=== PATIENT | female | born 1965 | race Caucasian/White ===

== ENCOUNTER 2019-11-17 13:15 | Outpatient (CLI) | payer MEDICARE, SELFPAY ==
[2019-11-17 13:54] LABS: Basophils % 0.6 %; Eosinophils % 0.4 %; Hematocrit 43.2 % (37.0-47.0); Hemoglobin 14.1 g/dL (11.5-15.3); Lymphocytes # 1.3 10^3/uL (0.8-4.8); Lymphocytes % 26.2 %; Mean Corpuscular HGB Conc 32.6 g/dL (30.0-36.0); Mean Corpuscular Hemoglobin 29.7 pg (28.0-34.0); Mean Corpuscular Volume 90.9 fL (81-99); Mean Platelet Volume 9.5 fL (7.4-10.4); Monocytes # 0.4 10^3/uL (0.2-0.9); Monocytes % 8.7 %; Neutrophils # 3.2 10^3/uL (1.8-7.7); Neutrophils % 63.9 %; Nucleated Red Blood Cells % 0 %; Platelet Count 239 10^3/cmm (130-400); Red Blood Count 4.75 10^6/uL (4.1-5.3); Red Cell Distribution Width 12.7 % (12.1-15.1)
[2019-11-17 14:09] LABS: Creatinine Urine, Random 156 mg/dL (28-217); Microalbumin Random Urine 9 ug/dL (0-20)
[2019-11-17 14:17] LABS: Magnesium 2.2 mg/dL (1.7-2.3)
[2019-11-17 14:18] LABS: Albumin Level 4.4 g/dL (3.5-5.2); Anion Gap 14.5 (5-19); Blood Urea Nitrogen 26 mg/dL (6-20); Calcium 9.8 mg/dL (8.5-10.5); Carbon Dioxide 24 mmol/L (22-29); Chloride 100 mmol/L (98-107); Glucose 98 mg/dL (65-115); Phosphorus 3.2 mg/dL (2.5-4.5); Potassium 3.5 mmol/L (3.5-5.1); Sodium 135 mmol/L (136-145)
[2019-11-17 14:19] LABS: Microalbum Creatinine Ratio Ur 58 mg/dL (0-20)
[2019-11-17 14:37] LABS: 25 Hydroxy Vitamin D 36 ng/mL (30-100)
[2019-11-17 14:51] LABS: Calcium 10.2 mg/dL (8.5-10.5); Parathyroid Hormone 129.3 pg/mL (15-65)
== END 2019-11-17 13:16 | disposition home or self-care (01) ==
LOC: LAB 13:21
PROVIDERS: Family Provider Internal Medicine; PCP Internal Medicine; Visit Provider Nurse Practitioner Family
DX: N18.4 Chronic kidney disease, stage 4 (severe) (principal)
CPT/HCPCS: 36415; 80069; 82044; 82306; 82310; 83735; 83970; 85025

== ENCOUNTER 2020-02-06 11:27 | Outpatient (CLI) | payer MEDICARE, SELFPAY ==
--- NOTE | 2020-02-06 11:34 | XR_ITS ---
WS: [id number] CHEST 2 VIEWS HISTORY: Cough COMPARISON: None available. Lungs: Clear with no abnormality. No pleural effusion or pneumothorax. Cardiac size: Normal. Mediastinum/Aorta: Normal mediastinum. Bones: Normal. XR/XR chest 2V* [id number] IMPRESSION: Normal chest.
[2020-02-06 11:52] LABS: Basophils % 0.9 %; Eosinophils # 0.2 10^3/uL (0.0-0.8); Eosinophils % 4.3 %; Hematocrit 42.7 % (37.0-47.0); Hemoglobin 13.8 g/dL (11.5-15.3); Lymphocytes # 1.2 10^3/uL (0.8-4.8); Lymphocytes % 26.1 %; Mean Corpuscular HGB Conc 32.3 g/dL (30.0-36.0); Mean Corpuscular Hemoglobin 31.1 pg (28.0-34.0); Mean Corpuscular Volume 96.2 fL (81-99); Mean Platelet Volume 9.2 fL (7.4-10.4); Monocytes # 0.4 10^3/uL (0.2-0.9); Monocytes % 9.5 %; Neutrophils # 2.6 10^3/uL (1.8-7.7); Nucleated Red Blood Cells % 0 %; Platelet Count 240 10^3/cmm (130-400); Red Blood Count 4.44 10^6/uL (4.1-5.3); White Blood Count 4.4 10^3/uL (4.0-10.0)
[2020-02-06 12:08] LABS: Alanine Aminotransferase 166 U/L (0-33); Albumin Level 4.8 g/dL (3.5-5.2); Alkaline Phosphatase 124 IU/L (35-105); Anion Gap 16.3 (5-19); Aspartate Amino Transferase 97 U/L (0-32); Blood Urea Nitrogen 13 mg/dL (6-20); Calcium 9.8 mg/dL (8.5-10.5); Carbon Dioxide 27 mmol/L (22-29); Chloride 104 mmol/L (98-107); Globulin 2.8 g/dL (1.3-4.6); Glomerular Filtration Rate 36.5 mL/min (90-130); Glucose 109 mg/dL (65-115); Osmolality Calculated 293 mOsm/kg (285-295); Potassium 4.3 mmol/L (3.5-5.1); Sodium 143 mmol/L (136-145); Total Bilirubin 0.5 mg/dL (0.15-1.2); Total Protein 7.6 g/dL (6.6-8.7)
== END 2020-02-06 11:28 | disposition home or self-care (01) ==
LOC: RAD 11:32
PROVIDERS: Nurse Practitioner Family; Family Provider Internal Medicine; PCP Internal Medicine; Visit Provider Internal Medicine
DX: R05 Cough (principal); R53.83 Other fatigue
CPT/HCPCS: 36415; 71046; 80053; 85025

== ENCOUNTER 2020-02-27 10:50 | Outpatient (CLI) | payer MEDICARE, SELFPAY ==
[2020-02-27 12:28] LABS: Alanine Aminotransferase 27 U/L (0-33); Albumin Level 4.6 g/dL (3.5-5.2); Alkaline Phosphatase 98 IU/L (35-105); Anion Gap 12.8 (5-19); Aspartate Amino Transferase 21 U/L (0-32); Blood Urea Nitrogen 18 mg/dL (6-20); Calcium 9.2 mg/dL (8.5-10.5); Carbon Dioxide 29 mmol/L (22-29); Chloride 103 mmol/L (98-107); Globulin 2.3 g/dL (1.3-4.6); Glomerular Filtration Rate 31.6 mL/min (90-130); Glucose 98 mg/dL (65-115); Osmolality Calculated 288 mOsm/kg (285-295); Potassium 3.8 mmol/L (3.5-5.1); Sodium 141 mmol/L (136-145); Total Bilirubin 0.5 mg/dL (0.15-1.2); Total Protein 6.9 g/dL (6.6-8.7)
[2020-02-27 13:35] LABS: Estmated Average Glucose 114; Hemoglobin A1C 5.6 % (4.0-6.0)
== END 2020-02-27 10:51 | disposition home or self-care (01) ==
PROVIDERS: PCP Internal Medicine; Visit Provider Internal Medicine Nephrology
DX: N18.3 Chronic kidney disease, stage 3 (moderate) (principal); R89.9 Unspecified abnormal finding in specimens from other organs, systems and tissues
CPT/HCPCS: 36415; 80053; 82044; 83036; 84100; 85025

== ENCOUNTER 2020-02-27 10:58 | Outpatient (CLI) | payer MEDICARE, SELFPAY ==
[2020-02-27 12:10] LABS: Basophils % 0.6 %; Eosinophils # 0.2 10^3/uL (0.0-0.8); Eosinophils % 3.1 %; Hematocrit 44.7 % (37.0-47.0); Hemoglobin 14.2 g/dL (11.5-15.3); Lymphocytes # 1.3 10^3/uL (0.8-4.8); Lymphocytes % 25.6 %; Mean Corpuscular HGB Conc 31.8 g/dL (30.0-36.0); Mean Corpuscular Hemoglobin 30.1 pg (28.0-34.0); Mean Corpuscular Volume 94.9 fL (81-99); Mean Platelet Volume 9.3 fL (7.4-10.4); Monocytes # 0.5 10^3/uL (0.2-0.9); Monocytes % 9.8 %; Neutrophils # 3.1 10^3/uL (1.8-7.7); Neutrophils % 60.7 %; Nucleated Red Blood Cells % 0 %; Platelet Count 247 10^3/cmm (130-400); Red Blood Count 4.71 10^6/uL (4.1-5.3); Red Cell Distribution Width 13.3 % (12.1-15.1); White Blood Count 5.1 10^3/uL (4.0-10.0)
[2020-02-27 12:26] LABS: Creatinine Urine, Random 89 mg/dL (28-217); Microalbumin Random Urine 5 ug/dL (0-20)
[2020-02-27 12:31] LABS: Microalbum Creatinine Ratio Ur 56 mg/dL (0-20)
[2020-02-27 14:27] LABS: Phosphorus 3.1 mg/dL (2.5-4.5)
== END 2020-02-27 10:59 | disposition home or self-care (01) ==
PROVIDERS: PCP Internal Medicine; Visit Provider Internal Medicine
DX: N18.3 Chronic kidney disease, stage 3 (moderate) (principal)
CPT/HCPCS: 36415; 82044; 84100; 85025

== ENCOUNTER 2020-06-12 11:59 | Outpatient (CLI) | payer MEDICARE, SELFPAY ==
--- NOTE | 2020-06-12 12:08 | XRR_ITS ---
PROCEDURE INFORMATION: Exam: XR Bilateral Knees, Standing AP Exam date and time: 06/12/2020 12:27 PM Age: 55 years old Clinical indication: Patient HX: C/O left knee pain x 2 months. HX of nonhodgkins lymphoma; Additional info: Right knee pain. Left knee pain TECHNIQUE: Imaging protocol: XR of the bilateral knees. Views: Standing AP. COMPARISON: No relevant prior studies available. FINDINGS: Bones/joints: Negative for acute bony abnormality: Soft tissues: Normal. XR/[place] [id number] IMPRESSION: No acute findings.
== END 2020-06-12 12:00 | disposition home or self-care (01) ==
LOC: RAD 12:06
PROVIDERS: PCP Internal Medicine; Visit Provider Internal Medicine
DX: M25.561 Pain in right knee (principal)
CPT/HCPCS: 73565; 84443

== ENCOUNTER → 2021-01-01 15:00 | Outpatient (BNVA) | payer MEDICARE, SELFPAY | PROVIDERS: PCP Internal Medicine; Visit Provider Internal Medicine | DX: E03.9 Hypothyroidism, unspecified (principal); L57.0 Actinic keratosis; D22.9 Melanocytic nevi, unspecified; N18.30 Chronic kidney disease, stage 3 unspecified | CPT/HCPCS: 80053; 80061; 80069; 82043; 82310; 83036; 83970; 84443; 85025 ==

== ENCOUNTER 2021-02-24 15:59 | Outpatient (CLI) | payer MEDICARE, SELFPAY ==
--- NOTE | 2021-02-24 17:30 | MR_ITS ---
WS: [id number] MRI LEFT ANKLE NONCONTRAST TECHNIQUE: Sagittal proton density, sagittal STIR, axial proton density, axial T1, axial T2 fat sat, coronal proton density, coronal proton density fat sat, coronal T2 fat sat. CLINICAL INFORMATION: Pain COMPARISON: None. FINDINGS: Pes planus. Mild hallux valgus. Palpable marker in the area of concern overlying the hindfoot. Normal underlying subcutaneous soft tissue. Small amount of edema along the proximal plantar aponeurosis. N ormal bone marrow signal in the calcaneus and talus. Normal ankle mortise. Normal medial and lateral malleolus. Distal Achilles is normal in appearance. Normal peroneal tendon sheath. Small amount of tenosynovitis along the tibialis posterior. Flexor compartment tendons otherwise normal. Normal extensor compartme nt tendons. Normal tarsal bones. Mild degenerative arthritis at the TMT joint. Normal talonavicular joint. Normal talocalcaneal articulation. MR/MR foot LT wo con* [id number] IMPRESSION: 1. Small amount of edema along the plantar aponeurosis in the area of palpable concern can be seen with plantar fasciitis. 2. Distal Achilles is normal in appearance. 3. Normal peroneal tendon sheath. 4. Small amount of tenosynovitis along the tibialis posterior. 5. Extensor and flexor compartment tendons are otherwise normal in appearance. 6. Normal ankle mortise.
== END 2021-02-24 16:00 | disposition home or self-care (01) ==
LOC: RADSHAW 16:03
PROVIDERS: PCP Internal Medicine; Visit Provider Podiatrist Foot & Ankle Surgery
DX: M79.672 Pain in left foot (principal); M65.872 Other synovitis and tenosynovitis, left ankle and foot; R60.0 Localized edema
CPT/HCPCS: 73718

== ENCOUNTER 2021-05-21 09:12 | Outpatient (CLI) | payer MEDICARE, SELFPAY ==
--- NOTE | 2021-05-21 09:15 | MR_ITS ---
WS: [id number] MRI LUMBAR SPINE NONCONTRAST TECHNIQUE: Sagittal T1, T2 and STIR imaging. Axial T1 and T2 imaging. 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 COMPARISON: None. FINDINGS: Mild lumbar curve. No acute compression. No high-grade central canal stenosis. A few low signal lesio ns in the lumbar spine have improved since 2015 consistent with treated lymphoma. No evidence of new or progressed disease. L1-L2: Normal. L2-L3: No significant disc bulging. Spinal canal and foramen are patent. Mild facet arthropathy. L3-L4: Mild annular bulging with slight effacement of ventral thecal sac. Moderate facet arthropathy. Spinal canal and foramen are patent. L4-L5: Mild annular bulging with slight effacement of the ventral thecal sac. Small right foraminal p rotrusion with a tiny annular fissure. Mild right and no significant left foraminal narrowing. Modera te facet arthropathy. L5-S1: No significant disc bulging. Spinal canal and foramen are patent. Mild facet arthropathy. Visualized pelvic bony structures: Normal. Paravertebral soft tissues: Normal. MR/MR lumbar spine wo con* [id number] IMPRESSION: 1. Mild lumbar curve. No acute compression. No high-grade central canal stenos is. 2. Small right foraminal protrusion L4-5 with a small annular fissure. Slight impingement on the exiting right L4 nerve root with mild right foraminal narrow ing. Correlation for right L4 nerve root symptoms. This appears progressed sinc e 2014. 3. Previously described lymphomatous bony lesions in the lumbar spine have imp roved consistent with treated lymphoma. No evidence of new or progressed diseas e. 4. Spinal canal and foramen are otherwise patent. 5. Moderate facet arthropathy L3-L4 and L4-L5.
== END 2021-05-21 09:13 | disposition home or self-care (01) ==
LOC: RADSHAW 09:13
PROVIDERS: PCP Internal Medicine; Visit Provider Internal Medicine
DX: Z85.72 Personal history of non-Hodgkin lymphomas (principal); R20.0 Anesthesia of skin; M47.816 Spondylosis without myelopathy or radiculopathy, lumbar region; M51.26 Other intervertebral disc displacement, lumbar region
CPT/HCPCS: 72148

== ENCOUNTER → 2021-12-16 16:00 | Outpatient (BNVA) | payer MEDICARE, SELFPAY | PROVIDERS: PCP Internal Medicine; Visit Provider Internal Medicine | DX: C85.99 Non-Hodgkin lymphoma, unspecified, extranodal and solid organ sites (principal); K22.70 Barrett's esophagus without dysplasia; R30.0 Dysuria; E03.9 Hypothyroidism, unspecified; Z79.899 Other long term (current) drug therapy | CPT/HCPCS: 80053; 80061; 81003; 82310; 82607; 83036; 83970; 84443 ==

== ENCOUNTER → 2021-12-18 10:23 | Outpatient (BNVA) | payer MEDICARE, SELFPAY | PROVIDERS: PCP Internal Medicine; Visit Provider Physician Assistant | DX: M54.16 Radiculopathy, lumbar region (principal) | CPT/HCPCS: 72110 ==

== ENCOUNTER 2022-01-26 10:17 | Outpatient (CLI) | payer MEDICARE, SELFPAY ==
--- NOTE | 2022-01-26 10:27 | MM_ITS ---
WS: [id number] DIAGNOSTIC BILATERAL 3D TOMOSYNTHESIS DIGITAL MAMMOGRAM WITH CAD HISTORY: HX OF BREAST CA COMPARISON: 05/19/2019 and 07/29/2016 TECHNIQUE: Bilateral craniocaudad, mediolateral oblique, and mediolateral views are submitted. Comput er aided detection utilized. Breast composition: There are scattered areas of fibroglandular density. No mass or calcifications ar e identified. Focal scar in the central LEFT breast. Patient underwent a prior reduction also. MM/[place] [id number] IMPRESSION: BI-RADS: 2-Benign FOLLOW UP: 1 Year Follow-up
== END 2022-01-26 10:18 | disposition home or self-care (01) ==
PROVIDERS: PCP Internal Medicine; Visit Provider Internal Medicine
DX: Z85.3 Personal history of malignant neoplasm of breast (principal)
CPT/HCPCS: 77062

== ENCOUNTER 2023-01-05 11:23 | Outpatient (CLI) | payer OTHER, SELFPAY ==
[2023-01-05 12:34] LABS: Basophils % 0.7 %; Eosinophils # 0.1 10^3/uL (0.0-0.8); Eosinophils % 2.3 %; Hemoglobin 13.9 g/dL (11.5-15.3); Lymphocytes # 1.5 10^3/uL (0.8-4.8); Lymphocytes % 25.4 %; Mean Corpuscular HGB Conc 31.6 g/dL (30.0-36.0); Mean Corpuscular Hemoglobin 30.1 pg (28.0-34.0); Mean Corpuscular Volume 95.2 fl (81-99); Mean Platelet Volume 9.5 fL (7.4-10.4); Monocytes # 0.4 10^3/uL (0.2-0.9); Monocytes % 7.7 %; Neutrophils # 3.66 10^3/uL (1.8-7.7); Neutrophils % 63.6 %; Nucleated Red Blood Cells % 0 %; Platelet Count 235 10^3/cmm (130-400); Red Blood Count 4.62 10^6/uL (4.1-5.3); Red Cell Distribution Width 14.1 % (12.1-15.1); White Blood Count 5.8 10^3/uL (4.0-10.0)
[2023-01-05 12:55] LABS: Creatinine Urine, Random 127 mg/dL (28-217); Microalbumin Random Urine 9 ug/dL (0-20)
[2023-01-05 12:56] LABS: Albumin Level 4.7 g/dL (3.5-5.2); Anion Gap 13.7 (5-19); Blood Urea Nitrogen 26 mg/dL (6-20); Calcium 9.4 mg/dL (8.5-10.5); Calcium 9.7 mg/dL (8.5-10.5); Carbon Dioxide 25 mmol/L (22-29); Chloride 105 mmol/L (98-107); Glomerular Filtration Rate 42.5 mL/min (90-130); Glucose 108 mg/dL (65-115); Microalbum Creatinine Ratio Ur 71 mg/dL (0-20); Phosphorus 2.9 mg/dL (2.5-4.5); Potassium 3.7 mmol/L (3.5-5.1); Sodium 140 mmol/L (136-145)
[2023-01-05 13:11] LABS: 25 Hydroxy Vitamin D 53 ng/mL (30-100)
== END 2023-01-05 11:24 | disposition home or self-care (01) ==
PROVIDERS: PCP Internal Medicine; Visit Provider Registered Nurse
DX: N18.32 Chronic kidney disease, stage 3b (principal)
CPT/HCPCS: 36415; 80069; 82044; 82306; 82310; 83970; 85025

== ENCOUNTER 2023-07-20 12:18 | Outpatient (CLI) | payer OTHER, SELFPAY ==
[2023-07-20 13:25] LABS: Basophils % 0.6 %; Eosinophils # 0.1 10^3/uL (0.0-0.8); Eosinophils % 1.4 %; Hematocrit 42.1 % (36-47); Lymphocytes # 1.6 10^3/uL (0.8-4.8); Lymphocytes % 31.4 %; Mean Corpuscular HGB Conc 32.5 g/dL (30-55); Mean Corpuscular Hemoglobin 30.4 pg (27-33); Mean Corpuscular Volume 93.6 fl (85-98); Mean Platelet Volume 9.1 fL (7.4-10.4); Monocytes # 0.3 10^3/uL (0.2-0.9); Monocytes % 6.9 %; Neutrophils # 2.93 10^3/uL (1.8-7.7); Neutrophils % 59.5 %; Nucleated Red Blood Cells % 0 %; Platelet Count 226 10^3/cmm (157-399); Red Cell Distribution Width 13.9 % (12.1-15.1); White Blood Count 4.93 10^3/uL (3.29-11.43)
[2023-07-20 13:43] LABS: Creatinine Urine, Random 74 mg/dL (28-217); Microalbum Creatinine Ratio Ur 27 mg/dL (0-20); Microalbumin Random Urine 2 ug/dL (0-20)
[2023-07-20 13:56] LABS: Albumin Level 4.8 g/dL (3.5-5.2); Anion Gap 14.6 (5-19); Blood Urea Nitrogen 31 mg/dL (6-20); Calcium 9.8 mg/dL (8.5-10.5); Carbon Dioxide 24 mmol/L (22-29); Chloride 106 mmol/L (98-107); Glomerular Filtration Rate 35.9 mL/min (90-130); Glucose 99 mg/dL (65-115); Phosphorus 3.4 mg/dL (2.5-4.5); Potassium 3.6 mmol/L (3.5-5.1); Sodium 141 mmol/L (136-145)
[2023-07-20 14:02] LABS: Calcium 9.7 mg/dL (8.5-10.5)
[2023-07-20 14:09] LABS: Parathyroid Hormone 42.3 pg/mL (15-65)
[2023-07-20 18:29] LABS: 25 Hydroxy Vitamin D 70 ng/mL (30-100)
== END 2023-07-20 12:19 | disposition home or self-care (01) ==
LOC: LAB 12:21
PROVIDERS: PCP Internal Medicine; Visit Provider Internal Medicine Nephrology
DX: N18.32 Chronic kidney disease, stage 3b (principal); N25.81 Secondary hyperparathyroidism of renal origin
CPT/HCPCS: 36415; 80069; 82044; 82306; 82310; 83970; 85025

== ENCOUNTER 2024-02-08 10:18 | Outpatient (CLI) | payer MEDICARE, SELFPAY ==
[2024-02-08 10:57] LABS: Basophils % 0.7 %; Eosinophils # 0.1 10^3/uL (0.0-0.8); Eosinophils % 1.8 %; Hematocrit 41.2 % (36-47); Lymphocytes # 1.3 10^3/uL (0.8-4.8); Lymphocytes % 28.4 %; Mean Corpuscular HGB Conc 32.8 g/dL (30-55); Mean Corpuscular Volume 94.5 fl (85-98); Mean Platelet Volume 9.2 fL (7.4-10.4); Monocytes # 0.3 10^3/uL (0.2-0.9); Monocytes % 5.6 %; Neutrophils % 63.3 %; Nucleated Red Blood Cells % 0 %; Platelet Count 200 10^3/cmm (157-399); Red Blood Count 4.36 10^6/uL (3.85-5.65); Red Cell Distribution Width 13.2 % (12.1-15.1); White Blood Count 4.43 10^3/uL (3.29-11.43)
[2024-02-08 11:18] LABS: Albumin Level 4.3 g/dL (3.5-5.2); Anion Gap 13.6 (5-19); Blood Urea Nitrogen 29 mg/dL (6-20); Carbon Dioxide 25 mmol/L (22-29); Chloride 105 mmol/L (98-107); Glomerular Filtration Rate 29.1 mL/min (90-130); Glucose 112 mg/dL (65-115); Phosphorus 3.4 mg/dL (2.5-4.5); Potassium 3.6 mmol/L (3.5-5.1); Sodium 140 mmol/L (136-145)
[2024-02-08 11:18] LABS: Creatinine Urine, Random 117 mg/dL (28-217); Microalbum Creatinine Ratio Ur 34 mg/dL (0-20); Microalbumin Random Urine 4 ug/dL (0-20)
[2024-02-08 11:19] LABS: Calcium 9.1 mg/dL (8.5-10.5)
[2024-02-08 11:24] LABS: Parathyroid Hormone 65.7 pg/mL (15-65)
[2024-02-08 11:32] LABS: 25 Hydroxy Vitamin D 54 ng/mL (30-100)
== END 2024-02-08 10:19 | disposition home or self-care (01) ==
LOC: LAB 10:25
PROVIDERS: PCP Internal Medicine; Visit Provider Internal Medicine Nephrology
DX: N18.32 Chronic kidney disease, stage 3b (principal)
CPT/HCPCS: 36415; 80069; 82044; 82306; 82310; 83970; 85025

== ENCOUNTER 2024-05-02 10:31 | Outpatient (CLI) | payer MEDICARE, SELFPAY ==
[2024-05-02 11:08] LABS: Basophils % 0.7 %; Eosinophils # 0.1 10^3/uL (0.0-0.8); Eosinophils % 3.1 %; Hematocrit 40.5 % (36-47); Lymphocytes # 1.4 10^3/uL (0.8-4.8); Lymphocytes % 30.8 %; Mean Corpuscular HGB Conc 32.8 g/dL (30-55); Mean Corpuscular Hemoglobin 31.1 pg (27-33); Mean Corpuscular Volume 94.6 fl (85-98); Monocytes # 0.3 10^3/uL (0.2-0.9); Monocytes % 7.3 %; Neutrophils # 2.64 10^3/uL (1.8-7.7); Neutrophils % 57.9 %; Nucleated Red Blood Cells % 0 %; Platelet Count 215 10^3/cmm (157-399); Red Blood Count 4.28 10^6/uL (3.85-5.65); Red Cell Distribution Width 13.2 % (12.1-15.1); White Blood Count 4.55 10^3/uL (3.29-11.43)
[2024-05-02 11:23] LABS: Albumin Level 4.5 g/dL (3.5-5.2); Anion Gap 13.5 (5-19); Blood Urea Nitrogen 26 mg/dL (6-20); Calcium 9.5 mg/dL (8.5-10.5); Carbon Dioxide 26 mmol/L (22-29); Chloride 102 mmol/L (98-107); Glomerular Filtration Rate 33.2 mL/min (90-130); Glucose 106 mg/dL (65-115); Phosphorus 3.6 mg/dL (2.5-4.5); Potassium 3.5 mmol/L (3.5-5.1); Sodium 138 mmol/L (136-145)
[2024-05-02 11:24] LABS: Calcium 9.6 mg/dL (8.5-10.5)
[2024-05-02 11:27] LABS: Creatinine Urine, Random 72 mg/dL (28-217); Microalbumin Random Urine 3 ug/dL (0-20)
[2024-05-02 11:33] LABS: Microalbum Creatinine Ratio Ur 42 mg/dL (0-20)
[2024-05-02 11:39] LABS: 25 Hydroxy Vitamin D 74 ng/mL (30-100)
== END 2024-05-02 10:32 | disposition home or self-care (01) ==
LOC: LAB 10:45
PROVIDERS: PCP Internal Medicine
DX: N25.81 Secondary hyperparathyroidism of renal origin (principal); N18.32 Chronic kidney disease, stage 3b
CPT/HCPCS: 36415; 80069; 82044; 82306; 82310; 83970; 85025

== ENCOUNTER 2024-07-25 14:52 | Outpatient (CLI) | payer MEDICARE, SELFPAY ==
[2024-07-25 15:30] LABS: Basophils % 0.7 %; Eosinophils # 0.2 10^3/uL (0.0-0.8); Eosinophils % 3.5 %; Hematocrit 43.6 % (36-47); Lymphocytes % 36.1 %; Mean Corpuscular HGB Conc 31.4 g/dL (30-55); Mean Corpuscular Volume 95.4 fl (85-98); Monocytes # 0.3 10^3/uL (0.2-0.9); Monocytes % 6.2 %; Neutrophils # 2.91 10^3/uL (1.8-7.7); Neutrophils % 53.3 %; Nucleated Red Blood Cells % 0 %; Platelet Count 235 10^3/cmm (157-399); Red Blood Count 4.57 10^6/uL (3.85-5.65); White Blood Count 5.46 10^3/uL (3.29-11.43)
[2024-07-25 15:42] LABS: Creatinine Urine, Random 99 mg/dL (28-217); Microalbum Creatinine Ratio Ur 61 mg/dL (0-20); Microalbumin Random Urine 6 ug/dL (0-20)
[2024-07-25 15:52] LABS: Albumin Level 4.8 g/dL (3.5-5.2); Anion Gap 11.5 (5-19); Blood Urea Nitrogen 18 mg/dL (6-20); Calcium 9.3 mg/dL (8.5-10.5); Carbon Dioxide 26 mmol/L (22-29); Chloride 105 mmol/L (98-107); Glucose 92 mg/dL (65-115); Phosphorus 3.6 mg/dL (2.5-4.5); Potassium 3.5 mmol/L (3.5-5.1); Sodium 139 mmol/L (136-145)
[2024-07-25 15:53] LABS: Calcium 9.2 mg/dL (8.5-10.5)
[2024-07-25 15:58] LABS: Parathyroid Hormone 69.6 pg/mL (15-65)
[2024-07-25 16:06] LABS: 25 Hydroxy Vitamin D 73 ng/mL (30-100)
== END 2024-07-25 14:53 | disposition home or self-care (01) ==
LOC: LAB 14:54
PROVIDERS: PCP Internal Medicine; Visit Provider Registered Nurse
DX: N18.32 Chronic kidney disease, stage 3b (principal); N25.81 Secondary hyperparathyroidism of renal origin
CPT/HCPCS: 36415; 80069; 82044; 82306; 82310; 83970; 85025

== ENCOUNTER 2024-12-18 10:53 | Outpatient (CLI) | payer MEDICARE, SELFPAY ==
--- NOTE | 2024-12-18 10:55 | MM_ITS ---
WS: [id number] DIAGNOSTIC BILATERAL DIGITAL BREAST TOMOSYNTHESIS MAMMOGRAPHY WITH CAD HISTORY: HX OF BREAST CANCER COMPARISON: 01/26/2022, 05/19/2019 TECHNIQUE: Bilateral craniocaudad, mediolateral oblique, and mediolateral views are submitted with tomosynthesis and SM. Computer aided detection utilized. Breast composition: There are scattered areas of fibroglandular density. Mild volume loss in the LEFT breast. Mild thickening and prominence of the LEFT breast trabecular pattern. Prior lumpectomy LEFT breast. No suspicious grouping of calcification or mass. Stable bilateral mammographic appearance. MM/MM diag BI tomosynthesis [id number] IMPRESSION: BI-RADS: 2 - Benign. FOLLOW UP: 1 Year Follow-up
== END 2024-12-18 10:54 | disposition home or self-care (01) ==
PROVIDERS: PCP Internal Medicine; Visit Provider Internal Medicine
DX: Z85.3 Personal history of malignant neoplasm of breast (principal); R92.323 Mammographic fibroglandular density, bilateral breasts; N64.89 Other specified disorders of breast; Z98.890 Other specified postprocedural states
CPT/HCPCS: 77062; G0279

== ENCOUNTER 2025-01-18 10:49 | Outpatient (CLI) | payer MEDICARE, SELFPAY ==
--- NOTE | 2025-01-18 10:57 | MR_ITS ---
WS: [id number] MRI LUMBAR SPINE NONCONTRAST HISTORY: DEGENERATION OF INTERVERTEBRAL DISC OF LSPINE REGION/PAIN COMPARISON: None available. TECHNIQUE: Sagittal and axial multisequence imaging is submitted. Normal lumbar alignment with no compression fractures or marrow edema. Disc spaces and vertebral body heights are well-preserved. Conus terminates normally at L1. L1-L2: Normal. L2-L3: Normal. L3-L4: Mild disc bulging with facet and ligamentum flavum hypertrophy. L4-L5: Mild annular disc bulging encroaching upon the ventral thecal sac. Very small central disc protrusion. There is slight disc contact on the traversing RIGHT L5 nerve root. Reidentified is a very small RIGHT foraminal disc protrusion. No significant stenosis. L5-S1: Mild disc bulging with a tiny central disc protrusion. No stenosis. Low signal mass in the LEFT renal cortex measures 8.5 mm. Mass has not been previously described. This is not a simple cyst. Possible additional lesion towards the more superior kidney versus motion artifact. MR/MR lumbar spine wo con* [id number] IMPRESSION: 1. No high-grade central or foraminal stenosis. 2. No destructive bone lesions. 3. Very small central disc protrusion at L4-5 contacting the traversing RIGHT L5 nerve root. Small RIGHT foraminal stenosis at L4-5. No significant stenosis. 4. Indeterminate LEFT renal mass 8.5 mm. This is not a simple cyst. Recommend follow-up renal mass protocol (with and without IV contrast), CT or MRI.
[2025-01-18 11:57] LABS: Creatinine Urine, Random 68 mg/dL (28-217); Microalbumin Random Urine 4 ug/dL (0-20)
[2025-01-18 11:58] LABS: Microalbum Creatinine Ratio Ur 59 mg/dL (0-20)
[2025-01-18 12:04] LABS: Albumin Level 4.6 g/dL (3.5-5.2); Anion Gap 14.6 (5-19); Blood Urea Nitrogen 28 mg/dL (6-20); Calcium 9.6 mg/dL (8.5-10.5); Carbon Dioxide 24 mmol/L (22-29); Chloride 104 mmol/L (98-107); Glomerular Filtration Rate 38.8 mL/min (90-130); Glucose 94 mg/dL (65-115); Phosphorus 3.2 mg/dL (2.5-4.5); Potassium 3.6 mmol/L (3.5-5.1); Sodium 139 mmol/L (136-145)
[2025-01-18 12:05] LABS: Calcium 9.7 mg/dL (8.5-10.5)
[2025-01-18 12:07] LABS: Thyroid Stimulating Hormone 0.46 uIU/mL (0.27-4.20)
[2025-01-18 12:09] LABS: Parathyroid Hormone 48.7 pg/mL (15-65)
[2025-01-18 12:18] LABS: 25 Hydroxy Vitamin D 79 ng/mL (30-100)
== END 2025-01-18 10:50 | disposition home or self-care (01) ==
LOC: RAD 10:52
PROVIDERS: Absent Provider Registered Nurse; PCP Internal Medicine; Visit Provider Internal Medicine
DX: M51.362 Other intervertebral disc degeneration, lumbar region with discogenic back pain and lower extremity pain (principal); E03.9 Hypothyroidism, unspecified; N18.32 Chronic kidney disease, stage 3b; I10 Essential (primary) hypertension; M51.26 Other intervertebral disc displacement, lumbar region; M48.061 Spinal stenosis, lumbar region without neurogenic claudication; N28.89 Other specified disorders of kidney and ureter; M24.28 Disorder of ligament, vertebrae; M89.38 Hypertrophy of bone, other site; M51.379 Other intervertebral disc degeneration, lumbosacral region without mention of lumbar back pain or lower extremity pain
CPT/HCPCS: 36415; 72148; 80069; 82044; 82306; 82310; 83735; 83970; 84443

== ENCOUNTER 2025-02-06 08:54 | Outpatient (CLI) | payer MEDICARE, SELFPAY ==
--- NOTE | 2025-02-06 08:58 | MRR_ITS ---
PROCEDURE INFORMATION: Exam: MR Abdomen Without and With Contrast Exam date and time: 02/06/2025 9:37 AM Age: 59 years old Clinical indication: Abnormal findings; Abnormal radiologic finding of the abdomen; Radiologic exam and body structure: MR L spine; Prior surgery; Surgery date: 6+ months; Surgery type: Gallbladder/left breast lumpectomy; Indeterminate left renal mass 8.5 mm. This is not a simple cyst. Recommend follow-up renal mass , HX of left breast cancer, non hodgkins; Additional info: Renal cyst/renal mass TECHNIQUE: Imaging protocol: Magnetic resonance imaging of the abdomen without and with contrast. COMPARISON: MR lumbar spine wo con* [id number] 01/18/2025 11:37 AM FINDINGS: Liver: No mass. Gallbladder and biliary ducts: Status post cholecystectomy. Pancreas: Unremarkable. No ductal dilation. Spleen: Unremarkable. No splenomegaly. Adrenal glands: Unremarkable. No mass. Kidneys: No hydronephrosis. 8 mm right renal parapelvic cyst. Similar area of ill-defined enhancement in the interpolar region of the left kidney on series 700, image 164 corresponding to the area of hypointensity seen on the prior MRI lumbar spine. This appears isointense to the adjacent renal parenchyma on the 2 minute postcontrast images and mildly hyperintense on the 5 minute postcontrast images (for example series 900, image 33). Additionally, there is a 12 mm mildly hyperenhancing focus in the upper pole of the left kidney (series 700, image 151) with apparent washout on delayed images (series 700, image 217 and series 900, image 24). Stomach and bowel: Visualized stomach and intestines are unremarkable. Intraperitoneal space: No free fluid. Vasculature: No abdominal aortic aneurysm. Lymph nodes: No enlarged nodes. Bones/joints: Unremarkable. No suspicious lesions. Soft tissues: Unremarkable. MR/MR abdomen wo/w con* [id number] IMPRESSION: 1. 12 mm mildly hyperenhancing focus in the upper pole of the left kidney with apparent washout may represent renal cell carcinoma. Consider tissue sampling for correlation. A short interval follow-up MRI could also be considered in 6-12 weeks to document stability. 2. Subtle ill-defined area of enhancement in the left interpolar region corresponding to the hypointense focus seen on recent prior MRI lumbar spine is nonspecific, though a small neoplasm is not excluded.
[2025-02-06] MEDS: gadobenate dimeglumine 20 mL vial IV (09:56)
== END 2025-02-06 08:55 | disposition home or self-care (01) ==
PROVIDERS: PCP Family Medicine; Visit Provider Registered Nurse
DX: N28.89 Other specified disorders of kidney and ureter (principal); Z90.49 Acquired absence of other specified parts of digestive tract; N28.1 Cyst of kidney, acquired; R93.422 Abnormal radiologic findings on diagnostic imaging of left kidney
CPT/HCPCS: 74183

== ENCOUNTER 2025-04-20 13:53 | Outpatient (CLI) | payer MEDICARE, SELFPAY ==
--- NOTE | 2025-04-20 14:30 | XR_ITS ---
WS: [id number] SCREENING DEXA SCAN [employer] CLINICAL INFORMATION: hx of chemo COMPARISON: None. FINDINGS: The L1-L4 bone mineral density measures 1.046 g/cm2. This corresponds to a T score score of -1.1 and Z score of -1.1. Left femoral neck bone mineral density measures 0.940 g/cm2. This corresponds to a T score of -0.5 and Z score of -0.5. Right femoral neck bone mineral density measures 0.949 g/cm2. This corresponds to a T score -0.5of and Z score of -0.4. Mean femoral neck bone mineral density measures 0.944 g/cm2. This corresponds to a T score of -0.5 and Z score of -0.4. XR/XR DEXA axial skeleton* [id number] IMPRESSION: Osteopenia lumbar spine. Normal bone mineralization femoral necks. Patient's FRAX calculated 10 year probability for major osteoporotic fracture i s 6.7% and osteoporotic hip fracture is 0.5%.
== END 2025-04-20 13:54 | disposition home or self-care (01) ==
LOC: RAD 13:53
PROVIDERS: PCP Family Medicine; Visit Provider Family Medicine
DX: Z13.820 Encounter for screening for osteoporosis (principal); Z00.00 Encounter for general adult medical examination without abnormal findings; M85.88 Other specified disorders of bone density and structure, other site
CPT/HCPCS: 77080

== ENCOUNTER 2025-07-18 09:55 | Outpatient (CLI) | payer MEDICARE, SELFPAY ==
[2025-07-18 11:28] LABS: Hematocrit 44.6 % (36-47); Hemoglobin 13.90 g/dL (11.27-16.99); Mean Corpuscular HGB Conc 31.2 g/dL (30-55); Mean Corpuscular Hemoglobin 30.8 pg (27-33); Mean Corpuscular Volume 98.7 fl (85-98); Nucleated Red Blood Cells % 0 %; Platelet Count 284 10^3/cmm (157-399); Red Blood Count 4.52 10^6/uL (3.85-5.65); White Blood Count 4.17 10^3/uL (3.29-11.43)
[2025-07-18 11:48] LABS: Creatinine Urine, Random 32 mg/dL (28-217)
[2025-07-18 11:49] LABS: Microalbum Creatinine Ratio Ur 63 mg/dL (0-20)
[2025-07-18 11:53] LABS: Albumin Level 4.5 g/dL (3.5-5.2); Anion Gap 14.2 (5-19); Blood Urea Nitrogen 27 mg/dL (6-20); Calcium 9.6 mg/dL (8.5-10.5); Carbon Dioxide 27 mmol/L (22-29); Chloride 104 mmol/L (98-107); Glucose 102 mg/dL (65-115); Potassium 4.2 mmol/L (3.5-5.1); Sodium 141 mmol/L (136-145)
[2025-07-18 11:55] LABS: Calcium 9.6 mg/dL (8.5-10.5)
== END 2025-07-18 09:56 | disposition home or self-care (01) ==
PROVIDERS: PCP Family Medicine; Visit Provider Registered Nurse
DX: N18.32 Chronic kidney disease, stage 3b (principal)
CPT/HCPCS: 36415; 80069; 82044; 82306; 82310; 83970; 85025